=== PATIENT | female | born 1985 | race Asian ===

== ENCOUNTER 2016-12-16 17:05 | Emergency (ER) | payer OTHER ==
[~2016-12-16] VITALS: Ht 165.1 cm; Wt 53.0 kg
[2016-12-16 17:10] VITALS: Ht 165.1 cm; Wt 53.0 kg
[2016-12-16 18:20] LABS: ADD SCAN DIFF NO
[2016-12-16 18:23] LABS: BASOPHILS % 0.5 % (0.0-2.0); EOSINOPHILS # 0.1 10^3/ul (0.0-0.5); EOSINOPHILS % 1.3 % (0.0-7.0); HEMATOCRIT 35.8 % (37.0-47.0); HEMOGLOBIN 11.8 g/dl (12.0-16.0); LYMPHOCYTES # 2.2 10^3/ul (0.8-2.9); LYMPHOCYTES % 26.1 % (15.0-51.0); MEAN CORPUSCULAR HEMOGLOBIN 31.1 pg (29.0-33.0); MEAN CORPUSCULAR VOLUME 94.2 fl (82.0-101.0); MEAN PLATELET VOLUME 8.8 fl (7.4-10.4); MONOCYTE # 0.6 10^3/ul (0.3-0.9); MONOCYTES % 7.4 % (0.0-11.0); NEUTROPHIL # 5.3 10^3/ul (1.6-7.5); NEUTROPHILS % 64.3 % (39.0-77.0); PLATELET COUNT 267 10^3/UL (140-415); WHITE BLOOD COUNT 8.3 10^3/ul (4.8-10.8)
[2016-12-16 18:42] LABS: ADD UMIC NO; UR ASCORBIC ACID NEGATIVE (NEGATIVE); UR BILIRUBIN (Dip) NEGATIVE (NEGATIVE); UR BLOOD (Dip) NEGATIVE (NEGATIVE); UR CLARITY CLEAR (CLEAR); UR COLOR YELLOW (YELLOW); UR GLUCOSE (Dip) NEGATIVE (NEGATIVE); UR KETONES (Dip) NEGATIVE (NEGATIVE); UR LEUKOCYTE ESTERASE (Dip) NEGATIVE Leu/ul (NEGATIVE); UR NITRITE (Dip) NEGATIVE (NEGATIVE); UR SPECIFIC GRAVITY (Dip) 1.015 (1.003-1.030); UR TOTAL PROTEIN (Dip) NEGATIVE (NEGATIVE); UR UROBILINOGEN (Dip) NEGATIVE (NEGATIVE)
--- NOTE | 2016-12-16 19:02 | RADRPT ---
PROCEDURE: OBSTETRICAL ULTRASOUND WITH ENDOVAGINAL IMAGES CLINICAL INDICATION: Vaginal Bleed () TECHNIQUE: Multiple sonographic images of the pelvis were obtained utilizing a transabdominal and endovaginal technique. The images were reviewed on a PACS workstation. COMPARISON: None. LMP: 09/17/2016 FINDINGS: The uterus measures 9.8 x 8.9 x 11.1 cm. There is a single intrauterine with mean sac diameter of 5.07 cm, yolk sac, and crown-rump length of 3.53 cm which is consistent with a gestational age of 10 weeks, 6 days . The estimated date of delivery by ultrasound is 07/08/2017 . The estimated gestational age by LMP is 12 weeks, 6 days . The estimated date of delivery by LMP is 06/24/2017. No heart tones are detected. There is a 2.6 x 0.8 cm subchorionic hemorrhage adjacent to the gestational sac. The right ovary measures seen 3.2 x 1.9 x 2.3 cm. The left ovary measures 2.8 x 1.6 x 2.4 cm. There is normal vascular flow in both ovaries. No significant ovarian lesions are seen. No significant pelvic free fluid is identified. IMPRESSION: A single intrauterine gestation is identified which would be consistent with a gestational age of 10 weeks, 6 days. No heart tones are detected consistent with demise. 2.6 cm subchorionic hemorrhage. These findings were discussed with Dr. Adams over the phone on 12/16/2016 at 19:02 hours. RPTAT: EE Physician Andreas Date Time Electronically viewed and signed by Shun Frances Physician on 12/16/2016 19:02 /
--- NOTE | 2016-12-16 19:56 | ERD ---
ER Documentation Chief Complaint Date/Time DATE: 12/16/16 TIME: 19:53 Chief Complaint Complains of No FHT sent from OB for eval. HPI This is a 31-year-old female presents to the ER sent by her OB for evaluation secondary to heart tones not seen. Patient is currently 13 weeks . A1. Patient denies any vaginal bleeding or pelvic pain. She denies any urinary frequency or dysuria. She denies any vaginal discharge. ROS 12 point review of systems was done, all negative except per HPI. Allergies Allergies: Coded Allergies: No Known Allergy (Unverified , 12/16/16) PMhx/Soc Medical and Surgical Hx: pt denies Medical Hx, pt denies Surgical Hx Hx Alcohol Use: No Hx Substance Use: No Hx Tobacco Use: No Smoking Status: Never smoker Physical Exam Vitals Vital Signs Date Time Temp Pulse Resp B/P Pulse Ox O2 Delivery O2 Flow Rate FiO2 12/16/16 17:10 98.7 94 20 100/57 99 Physical Exam GENERAL: The patient is well developed and appropriate for usual state of health , in no apparent distress. HEENT: Atraumatic. CHEST: Clear to auscultation bilaterally. There are no rales, wheezes or rhonchi. HEART: Regular rate and rhythm. No murmurs, clicks, rubs or gallops. ABDOMEN: Soft, nontender and nondistended. Good bowel sounds. No rebound or guarding. No gross peritonitis. No gross organomegaly or masses. No Dave sign or McBurney point tenderness. BACK: No midline or flank tenderness. NEURO: Alert and oriented. Result Diagram: 12/16/16 1805 Results 24 hrs Laboratory Tests Test 12/16/16 18:02 12/16/16 18:05 Urine Color YELLOW Urine Clarity CLEAR Urine pH 5.0 Urine Specific [place] 1.015 Urine Ketones NEGATIVEmg/dL Urine Nitrite NEGATIVEmg/dL Urine Bilirubin NEGATIVEmg/dL Urine Urobilinogen NEGATIVEmg/dL Urine Leukocyte Esterase NEGATIVELeu/ul Urine Hemoglobin NEGATIVEmg/dL Urine Glucose NEGATIVEmg/dL Urine Total Protein NEGATIVEmg/dl White Blood Count 8.310^3/ul Red Blood Count 3.8010^6/ul Hemoglobin 11.8g/dl Hematocrit 35.8% Mean Corpuscular Volume 94.2fl Mean Corpuscular Hemoglobin 31.1pg Mean Corpuscular Hemoglobin Concent 33.0g/dl Red Cell Distribution Width 12.0% Platelet Count 53255^3/UL Mean Platelet Volume 8.8fl Neutrophils % 64.3% Lymphocytes % 26.1% Monocytes % 7.4% Eosinophils % 1.3% Basophils % 0.5% Nucleated Red Blood Cells % 0.0/100WBC Neutrophils # 5.310^3/ul Lymphocytes # 2.210^3/ul Monocytes # 0.610^3/ul Eosinophils # 0.110^3/ul Basophils # 0.010^3/ul Nucleated Red Blood Cells # 0.010^3/ul Beta HCG, Quantitative 1427.2mIU/ml [place] [id number] Radiology Main Line: [phone] DIAGNOSTIC IMAGING REPORT Patient: ARETHA NELSON : 1985 Age: 31 Sex: F MR #: [id number] DOS: 12/16/16 1746 Ordering MD: IVAN STEVENS PA-C Location: [facility] Room/Bed: PROCEDURE: OBSTETRICAL ULTRASOUND WITH ENDOVAGINAL IMAGES CLINICAL INDICATION: Vaginal Bleed () TECHNIQUE: Multiple sonographic images of the pelvis were obtained utilizing a transabdominal and endovaginal technique. The images were reviewed on a PACS workstation. COMPARISON: None. LMP: 09/17/2016 FINDINGS: The uterus measures 9.8 x 8.9 x 11.1 cm. There is a single intrauterine with mean sac diameter of 5.07 cm, yolk sac, and crown-rump length of 3.53 cm which is consistent with a gestational age of 10 weeks, 6 days . The estimated date of delivery by ultrasound is 07/08/2017 . The estimated gestational age by LMP is 12 weeks, 6 days . The estimated date of delivery by LMP is 06/24/2017. No heart tones are detected. There is a 2.6 x 0.8 cm subchorionic hemorrhage adjacent to the gestational sac. The right ovary measures seen 3.2 x 1.9 x 2.3 cm. The left ovary measures 2.8 x 1.6 x 2.4 cm. There is normal vascular flow in both ovaries. No significant ovarian lesions are seen. No significant pelvic free fluid is identified. IMPRESSION: A single intrauterine gestation is identified which would be consistent with a gestational age of 10 weeks, 6 days. No heart tones are detected consistent with demise. 2.6 cm subchorionic hemorrhage. These findings were discussed with Dr. Adams over the phone on 12/16/2016 at 19 :02 hours. RPTAT: EE Shun Frances Physician Date Time Electronically viewed and signed by Shun Frances Physician on 12/16/2016 19:02 RA/ CC: IVAN STEVENS Procedures/MDM This is a 31-year-old female that presents to the ER for evaluation secondary to no heart tone seen at her OBs office. Unfortunately patient does appear to have demise. Patient does not have any bleeding at this time, patient was told to follow-up with her OB for possible D&C. Patient is to follow-up within 1-2 days return to ER sooner if symptoms worsen. My medical decision making was shared with the patient, she understands and agrees with plan. Departure Diagnosis: Primary Impression: demise Condition: Stable Patient Instructions: Miscarriage Additional Instructions: Call your primary care doctor TOMORROW for an appointment during the next 1-2 days.See the doctor sooner or return here if your condition worsens before your appointment time. IVAN STEVENS Dec 16, 2016 19:55
== END 2016-12-16 19:44 | disposition home or self-care (01) ==
LOC: FTE 17:05
DX: O02.1 Missed abortion (principal)
CPT/HCPCS: 76801; 76817; 81003; 84702; 85025; 86900; 86901; Z7502

== ENCOUNTER 2016-12-22 03:01 | Emergency (ER) | payer OTHER ==
[~2016-12-22] VITALS: Ht 167.6 cm; Wt 51.0 kg
[2016-12-22 03:04] VITALS: Ht 167.6 cm; Wt 51.0 kg
--- NOTE | 2016-12-22 04:09 | ERD ---
ER Documentation Chief Complaint Date/Time DATE: 12/22/16 TIME: 04:08 Chief Complaint 14 wks vag bleeding w/ pelvic pain since this morning HPI 31-year-old femur female presents here in emergency department for complaints of pelvic pain and vaginal bleeding continuously for the last 5 days, patient was seen here in emergency department last week, was diagnosed to possibly have failed , an intrauterine was seen without any heartbeat. Patient continues to have pelvic pain and vaginal bleeding, patient saw OB doctor yesterday, has scheduled for a blood draw and ultrasound, today, she continues to have pain that got worse. Patient described the pain as throbbing pain,810 scale, and is accompanying the vaginal bleeding. ROS All systems reviewed and are negative except as per history of present illness. Medications Home Meds Reported Medications [none] Unknown Strength No Conflict Check 12/22/16 Allergies Allergies: Coded Allergies: No Known Allergy (Unverified , 12/16/16) PMhx/Soc Medical and Surgical Hx: pt denies Medical Hx, pt denies Surgical Hx Hx Alcohol Use: No Hx Substance Use: No Hx Tobacco Use: No Smoking Status: Never smoker FmHx Family History: No coronary disease, No diabetes, No other Physical Exam Vitals Vital Signs Date Time Temp Pulse Resp B/P Pulse Ox O2 Delivery O2 Flow Rate FiO2 12/22/16 03:04 97.8 78 20 119/78 100 Physical Exam GENERAL: The patient is well developed and appropriate for usual state of health, in no apparent distress. CHEST: Clear to auscultation bilaterally. There are no rales, wheezes or rhonchi. HEART: Regular rate and rhythm. No murmurs, clicks, rubs or gallops. No S3 or S4. ABDOMEN: Soft, nontender and nondistended. Good bowel sounds. No rebound or guarding. No gross peritonitis. No gross organomegaly or masses. No Dave sign or McBurney point tenderness. BACK: No midline or flank tenderness. EXTREMITIES: Equal pulses bilaterally. There is no peripheral clubbing, cyanosis or edema. No focal swelling or erythema. Full range of motion. Grossly neurovascularly intact. NEURO: Alert and oriented. Cranial nerves 2-12 intact. Motor strength in all 4 extremities with 5/5 strength. Sensation grossly intact. Normal speech and gait. SKIN: There is no apparent rash or petechia. The skin is warm and dry. HEMATOLOGIC AND LYMPHATIC: There is no evidence of excessive bruising or lymphedema. No gross cervical, axillary, or inguinal lymphadenopathy. Vaginal: Small amount of blood in the vaginal vault, during examination, avidly gush of clear liquid came out with some bloody discharge, a tissue came out of, afterwards, the cervical os is closed, no adnexal tenderness, bleeding is controlled. Result Diagram: 12/22/16 0410 Results 24 hrs Laboratory Tests Test 12/22/16 04:10 White Blood Count 10.510^3/ul Red Blood Count 4.0510^6/ul Hemoglobin 12.6g/dl Hematocrit 38.3% Mean Corpuscular Volume 94.6fl Mean Corpuscular Hemoglobin 31.1pg Mean Corpuscular Hemoglobin Concent 32.9g/dl Red Cell Distribution Width 12.2% Platelet Count 54727^3/UL Mean Platelet Volume 8.9fl Neutrophils % 65.3% Lymphocytes % 26.5% Monocytes % 6.0% Eosinophils % 1.3% Basophils % 0.5% Nucleated Red Blood Cells % 0.0/100WBC Neutrophils # 6.910^3/ul Lymphocytes # 2.810^3/ul Monocytes # 0.610^3/ul Eosinophils # 0.110^3/ul Basophils # 0.110^3/ul Nucleated Red Blood Cells # 0.010^3/ul Urine Color COLORLESS Urine Clarity CLEAR Urine pH 6.0 Urine Specific [place] 1.003 Urine Ketones NEGATIVEmg/dL Urine Nitrite NEGATIVEmg/dL Urine Bilirubin NEGATIVEmg/dL Urine Urobilinogen NEGATIVEmg/dL Urine Leukocyte Esterase NEGATIVELeu/ul Urine Microscopic RBC 0/HPF Urine Microscopic WBC 0/HPF Urine Bacteria FEW/HPF Urine Hemoglobin 1+mg/dL Urine Glucose NEGATIVEmg/dL Urine Total Protein NEGATIVEmg/dl Beta HCG, Quantitative 356.1mIU/ml Current Medications Medications (Trade) Dose Ordered Sig/Isac Route PRN Reason Start Time Stop Time Status Last Admin Dose Admin Morphine Sulfate (morphine) 6 mg ONCE ONCE IM 12/22/16 05:00 12/22/16 05:00 DC Ondansetron HCl (Zofran Inj) 4 mg ONCE STAT IV 12/22/16 04:37 12/22/16 04:38 DC Morphine Sulfate (morphine) 6 mg ONCE ONCE IM 12/22/16 05:00 12/22/16 05:01 DC 12/22/16 04:53 Ondansetron HCl (Zofran Odt) 4 mg ONCE STAT ODT 12/22/16 04:38 12/22/16 04:39 DC 12/22/16 04:53 Patient was given medication for pain here in emergency department, after treatment, patient verbalized feeling much better. Patient's pain is improved.Patient was given Zofran here in the emergency department. After treatment, patient was able to tolerate po fluids here in the emergency department without any vomiting. There is no signs and symptoms of dehydration. PROCEDURE: Obstetrical ultrasound. CLINICAL INDICATION: Vaginal bleeding. TECHNIQUE: Multiple sonographic images of the pelvis were obtained with transabdominal technique. Images were obtained with romero scale and color Doppler. COMPARISON: 12/16/2016. FINDINGS: There is an intrauterine gestational sac with a pole identified. No heart tones are identified. The crown-rump length averages 3.63 cm, compatible with 10 weeks and 4 days. The mean sac diameter averages 3.97 cm, compatible with 9 weeks and 3 days. A yolk sac is not visualized. No subchorionic collection is identified. There is no pelvic free fluid. Bilateral ovaries are not visualized. There is no suspicious adnexal mass identified. IMPRESSION: Single intrauterine with an estimated gestational age of 10 weeks and 0 days. No heart tones are identified compatible with early failed . Bilateral ovaries not visualized. .Elías Jones MD, MD Date Time Electronically viewed and signed by .Elías Jones MD, MD on 12/22/2016 05:20 .T/ Procedures/MDM Medical Decision Making: Patients vaginal bleeding is most likely consistent of spontaabortion, tissue was passed and is in biopsy. Patient does not show any evidence of hypovolemic shock. Patients hemoglobin and hematocrit is stable. There is low suspicion for ectopic . SONG results show a total demise, 10 week without any heartbeat BetaHCG Quantitative is lower The patient is Rh+, does not need RhoGAM this time. There is no signs of symptoms of dehydration. There is low suspicion for sepsis. Patient appears well and is hemodynamically stable. \ Disposition: Home. Condition: Stable Prescription: Ibuprofen, [place] Instructions: Patient is advised to do bed rest, avoid heavy lifting, and avoid having sex until cleared by OB doctor. Patient is advised to follow up with OB doctor per appointment this morning, is able to pick tissue specimen within 48-72 hours. Patient is advised that is symptoms are worst, severe bleeding, dizziness, severe abdominal pain, fever, worst signs and symptoms to return to the emergency department immediately. Disclaimer: Inadvertent spelling and grammatical errors are likely due to EHR/ dictation software use and do not reflect on the overall quality of patient care. Also, please note that the electronic time recorded on this note does not necessarily reflect the actual time of the patient encounter. Departure Diagnosis: Primary Impression: demise Additional Impression: Spontaneous Condition: Stable Patient Instructions: Miscarriage, Spontaneous (Completed) Additional Instructions: : Patient is advised to do bed rest, avoid heavy lifting, and avoid having sex until cleared by OB doctor. Patient is advised to follow up with OB doctor per appointment this morning, is able to pick tissue specimen within 48-72 hours. Patient is advised that is symptoms are worst, severe bleeding, dizziness , severe abdominal pain, fever, worst signs and symptoms to return to the emergency department immediately. DHRUV BESS NP Dec 22, 2016 04:09
[2016-12-22] MEDS ORDERED: ONDANSETRON 4 MG INJ IV STA (04:37)
[2016-12-22] MEDS ORDERED: ONDANSETRON (ODT) 4 MG TAB ODT STA (04:38)
[2016-12-22 04:46] LABS: ADD SCAN DIFF NO
[2016-12-22 04:51] LABS: BASOPHIL # 0.1 10^3/ul (0.0-0.1); BASOPHILS % 0.5 % (0.0-2.0); EOSINOPHILS # 0.1 10^3/ul (0.0-0.5); EOSINOPHILS % 1.3 % (0.0-7.0); HEMATOCRIT 38.3 % (37.0-47.0); HEMOGLOBIN 12.6 g/dl (12.0-16.0); LYMPHOCYTES # 2.8 10^3/ul (0.8-2.9); LYMPHOCYTES % 26.5 % (15.0-51.0); MEAN CORPUSCULAR HEMOGLOBIN 31.1 pg (29.0-33.0); MEAN CORPUSCULAR HGB CONC 32.9 g/dl (32.0-37.0); MEAN CORPUSCULAR VOLUME 94.6 fl (82.0-101.0); MEAN PLATELET VOLUME 8.9 fl (7.4-10.4); MONOCYTE # 0.6 10^3/ul (0.3-0.9); NEUTROPHIL # 6.9 10^3/ul (1.6-7.5); NEUTROPHILS % 65.3 % (39.0-77.0); PLATELET COUNT 261 10^3/UL (140-415); RED BLOOD COUNT 4.05 10^6/ul (4.20-5.40); RED CELL DISTRIBUTION WIDTH 12.2 % (11.5-14.5); WHITE BLOOD COUNT 10.5 10^3/ul (4.8-10.8)
[2016-12-22 04:55] LABS: ADD UMIC YES; UR ASCORBIC ACID NEGATIVE (NEGATIVE); UR BACTERIA FEW /HPF (NONE SEEN); UR BILIRUBIN (Dip) NEGATIVE (NEGATIVE); UR BLOOD (Dip) 1+ mg/dL (NEGATIVE); UR CLARITY CLEAR (CLEAR); UR COLOR COLORLESS (YELLOW); UR GLUCOSE (Dip) NEGATIVE (NEGATIVE); UR KETONES (Dip) NEGATIVE (NEGATIVE); UR LEUKOCYTE ESTERASE (Dip) NEGATIVE Leu/ul (NEGATIVE); UR NITRITE (Dip) NEGATIVE (NEGATIVE); UR RBC 0 /HPF (0-5); UR SPECIFIC GRAVITY (Dip) 1.003 (1.003-1.030); UR TOTAL PROTEIN (Dip) NEGATIVE (NEGATIVE); UR UROBILINOGEN (Dip) NEGATIVE (NEGATIVE)
[2016-12-22] MEDS ORDERED: morphine 10 MG INJ IM ONE ×2 (05:00)
--- NOTE | 2016-12-22 05:20 | RADRPT ---
PROCEDURE: Obstetrical ultrasound. CLINICAL INDICATION: Vaginal bleeding. TECHNIQUE: Multiple sonographic images of the pelvis were obtained with transabdominal technique. Images were obtained with romero scale and color Doppler. COMPARISON: 12/16/2016. FINDINGS: There is an intrauterine gestational sac with a pole identified. No heart tones are iden tified. The crown-rump length averages 3.63 cm, compatible with 10 weeks and 4 days. The mean sac diameter averages 3.97 cm, compatible with 9 weeks and 3 days. A yolk sac is not visualized. No subchorionic collection is identified. There is no pelvic free fluid. Bilateral ovaries are not visualized. There is no suspicious adnexal mass identified. IMPRESSION: Single intrauterine with an estimated gestational age of 10 weeks and 0 days. No he art tones are identified compatible with early failed . Bilateral ovaries not visualized. .Elías Jones MD, MD Date Time Electronically viewed and signed by .Elías Jones MD, MD on 12/22/2016 05:20 .T/
[2016-12-22] MEDS ORDERED: HYDR-906 PO (05:38)
[2016-12-22] MEDS ORDERED: IBUP-1542 PO (05:38)
[2016-12-22 05:48] VITALS: BP 90/52; PULSE 71; RESP 17
== END 2016-12-22 05:57 | disposition home or self-care (01) ==
LOC: FTE 03:01
DX: O02.1 Missed abortion (principal)
CPT/HCPCS: 36415; 76801; 81001; 84702; 85025; 86900; 86901; 88305; 96372; J2270; Z7502; Z7610